=== PATIENT | female | born 2000 | race African-American/Black ===

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

== ENCOUNTER 2022-03-22 08:35 | Emergency (ER) | payer BC, MEDICAID, SELFPAY ==
[2022-03-22 09:20] VITALS: BP 120/74; PULSE 90; RESP 18; TEMP 36.6; O2SAT 98
--- NOTE | 2022-03-22 09:42 | ED.GENADULT ---
HPI - General Adult General Chief complaint: Urogenital-Female Stated complaint: urine smells Source: patient Mode of arrival: ambulatory Limitations: no limitations History of Present Illness HPI narrative: Patient presents for evaluation of foul-smelling urine for the last 3 weeks. She denies any fever, chills, nausea, vomiting, abdominal pain, low back pain, vaginal bleeding/discharge, urinary urgency, frequency, dysuria, hematuria, or other urinary symptoms. She states she works long hours and sometimes needs to avoid using the restroom for prolonged period of time. LMP 02/24/22. No additional complaints or concerns. Related Data Allergies Allergy/AdvReac Type Severity Reaction Status Date / Time No Known Allergies Allergy Verified 09/20/21 11:30 Review of Systems Review of Systems: CONSTITUTIONAL: Denies fever, chills, or sweats. EYES: Denies visual changes, redness, or discharge. ENT: Denies rhinorrhea, congestion, sore throat, or otalgia. CARDIOVASCULAR: Denies chest pain, palpitations, or edema. RESPIRATORY: Denies cough or dyspnea. GASTROINTESTINAL: Denies abdominal pain, nausea, vomiting, or diarrhea. GENITOURINARY: Reports foul smelling urine. Denies dysuria, hematuria or other urinary symptoms. Denies vaginal bleeding or discharge. SKIN: Denies rash or itching. MUSCULOSKELETAL: Denies back pain, joint pain, or myalgia. NEUROLOGIC: Denies headache, numbness, dizziness, or weakness. PSYCHIATRIC: Denies anxiety or depression. PMFSH Past Medical History Medical History Anxiety Surgical History Surgical History No significant past surgical history Family History Family History Grandparent Hypertension Mother Diabetes mellitus Father Diabetes mellitus Social History Social History Smoking status: Never smoker Second hand tobacco smoke exposure: No Alcohol intake: never Substance use: never Gender identity (if verbalized by the patient): Female Exam Narrative: GENERAL: Well-appearing, well-nourished, and in no acute distress. HEAD: Normocephalic, atraumatic. EYES: PERRLA and EOMI. ENT: Nares clear, no rhinorrhea or epistaxis. Mucous membranes moist. Oropharynx without tonsillar hypertrophy exudate or other lesions. Bilateral TMs pearly chavez nonbulging NECK: Supple. No adenopathy or masses. No carotid bruits or JVD CHEST: Clear to auscultation. No respiratory distress. No wheezes rales or rhonchi HEART: Regular rate and rhythm. No murmur heard. Normal peripheral pulses. ABDOMEN: Soft, nontender, nondistended, normal active bowel sounds. BACK: No CVA tenderness EXTREMITIES: Normal range of motion. No edema. SKIN: Warm, dry, no rash. NEURO: No focal deficits. Alert and oriented x3. PSYCH: Normal mood and affect. Course Course Emergency Course: This is a 21-year-old female who presented for evaluation of foul-smelling urine. She is nitrite positive. Will treat with Macrobid. Follow-up outpatient for further evaluation and treatment return for worsening symptoms. Patient in agreement with plan of care. Level of Care: Express Care Visit Vital Signs Vital signs: Vital Signs Temperature 36.6 C 03/22/22 09:20 Pulse Rate 90 03/22/22 09:20 Respiratory Rate 18 03/22/22 09:20 Blood Pressure 120/74 03/22/22 09:20 Pulse Oximetry 98 03/22/22 09:20 Oxygen Delivery Room Air 03/22/22 09:20 Temperature 36.6 C 03/22/22 09:20 Pulse Rate 90 03/22/22 09:20 Respiratory Rate 18 03/22/22 09:20 Blood Pressure 120/74 03/22/22 09:20 Pulse Oximetry 98 03/22/22 09:20 Oxygen Delivery Room Air 03/22/22 09:20 Medical Decision Making Vital Signs Vital Signs: Vital Signs Temperature 36.6 C 03/22/22 09:20 Pulse
== END 2022-03-22 09:45 | disposition home or self-care (01) ==
PROVIDERS: Emergency Provider Nurse Practitioner
DX: N39.0 Urinary tract infection, site not specified (principal)
CPT/HCPCS: 81003; 87077; 87086; 87186; 99213; G0463